=== PATIENT | male | born 1960 | race Two or more races ===

== ENCOUNTER → 2017-08-11 | Outpatient (CLI) | payer OTHER ==
[2017-08-11] MEDS: IOHEXOL 240 MG/ML 50ML VIAL. PO (09:00)
[2017-08-11] MEDS: IOHEXOL 300 MG/ML 100ML VIAL. IV (10:13)
== END | disposition home or self-care (01) ==
LOC: CT 14:57
DX: K40.90 Unilateral inguinal hernia, without obstruction or gangrene, not specified as recurrent (principal); K57.30 Diverticulosis of large intestine without perforation or abscess without bleeding; I70.0 Atherosclerosis of aorta; R16.1 Splenomegaly, not elsewhere classified
CPT/HCPCS: 74177; Q9966; Q9967